=== PATIENT | female | born 1970 | race Caucasian/White ===

== ENCOUNTER 2020-12-04 09:56 | Emergency (ER) | payer BC ==
[2020-12-04] MEDS ORDERED: methylPREDNISolone Sod Succ/PF 125 MG/2 ML VIAL ONE (10:03)
[2020-12-04] MEDS ORDERED: EPINEPHrine 1 MG/ML AMP ONE (10:04)
[2020-12-04] MEDS ORDERED: Famotidine/PF 20 mg/2ml Vial ONE (10:04)
[2020-12-04] MEDS ORDERED: diphenhydrAMINE 50 MG/ML VIAL ONE (10:04)
[2020-12-04] MEDS ORDERED: hydrOXYzine 25 MG TAB ONE (10:59)
== END 2020-12-04 12:50 | disposition home or self-care (01) ==
LOC: CSHERS 09:56
DX: T78.2XXA Anaphylactic shock, unspecified, initial encounter (principal); I10 Essential (primary) hypertension; F17.210 Nicotine dependence, cigarettes, uncomplicated
CPT/HCPCS: 96372; 96374; 96375; J0171; J1200; J2930; S0028

== ENCOUNTER 2020-12-06 04:05 | Emergency (ER) | payer BC ==
[2020-12-06] MEDS ORDERED: diphenhydrAMINE 50 MG/ML VIAL ONE (04:21)
[2020-12-06] MEDS ORDERED: methylPREDNISolone Sod Succ/PF 125 MG/2 ML VIAL ONE (04:21)
[2020-12-06] MEDS ORDERED: Famotidine/PF 20 mg/2ml Vial ONE (04:22)
[2020-12-06] MEDS ORDERED: EPINEPHrine 1 MG/ML AMP ONE (05:16)
== END 2020-12-06 07:45 | disposition home or self-care (01) ==
LOC: CSHERS 04:05
DX: L50.0 Allergic urticaria (principal); F17.210 Nicotine dependence, cigarettes, uncomplicated
CPT/HCPCS: 96372; 96374; 96375; J0171; J1200; J2930; S0028

== ENCOUNTER 2022-05-18 07:54 | Outpatient (CLI) | payer OTHER | END 2022-05-18 07:55 | disposition home or self-care (01) | LOC: CSHMRI 07:54 | PROVIDERS: ATTEND Family Medicine | DX: M47.816 Spondylosis without myelopathy or radiculopathy, lumbar region (principal); M51.9 Unspecified thoracic, thoracolumbar and lumbosacral intervertebral disc disorder; M51.26 Other intervertebral disc displacement, lumbar region; M48.061 Spinal stenosis, lumbar region without neurogenic claudication; M51.36 Other intervertebral disc degeneration, lumbar region | CPT/HCPCS: 72148 ==